=== PATIENT | female | born 1975 | race Caucasian/White ===

== ENCOUNTER 2024-11-22 06:27 | Emergency (ER) | payer OTHER, SELFPAY ==
[2024-11-22 06:35] VITALS: BP 126/80
[2024-11-22 06:55] LABS: % Basophils 0.7 % (0-2); % Eosinophils 2.5 % (0-6); % Immature Granulocytes 0.3 % (0-0.5); % Lymphocytes 28.4 % (20.5-51.1); % Monocytes 8.4 % (1.7-9.3); % Neutrophils 59.7 % (42.2-75.2); Absolute Basophils 0.1 10^3/uL (0-0.2); Absolute Eosinophils 0.2 10^3/uL (0-0.7); Absolute Lymphocytes 2.1 10^3/uL (1.2-3.4); Absolute Monocytes 0.6 10^3/uL (0.1-0.6); Absolute Neutrophils 4.4 10^3/uL (1.4-6.5); Hematocrit 33.2 % (37.0-47.0); Hemoglobin 9.9 g/dL (12.0-16.0); Mean Corp Hgb Conc. 29.8 g/dL (33.0-37.0); Mean Corpuscular Hgb 21.8 pg (27.0-31.0); Mean Corpuscular Volume 73.1 fL (81.0-99.0); Mean Platelet Volume 9.4 fL (7.4-10.4); Nucleated Red Blood Cells % 0 %; Platelet Count 352 10^3/uL (130-400); Red Blood Cell Count 4.54 10^6/uL (4.20-5.40); Red Cell Dist. Width 19.8 % (11.5-14.5); White Blood Cell Count 7.3 10^3/uL (4.8-10.8)
[2024-11-22 07:04] LABS: HCG, Serum Qualitative Screen Negative
[2024-11-22 07:17] LABS: ALT (SGPT) 18 U/L (0-35); AST (SGOT) 23 U/L (14-36); Albumin 4.3 g/dl (3.5-5.0); Alkaline Phosphatase 41 U/L (38-126); Blood Urea Nitrogen 13 mg/dl (7-17); Calcium 9.8 mg/dl (8.4-10.2); Carbon Dioxide 26 mmol/L (22-30); Chloride 109 mmol/L (98-107); Glucose 97 mg/dl (70-99); Potassium 4.5 mmol/L (3.5-5.1); Sodium 140 mmol/L (135-145); Total Bilirubin 0.6 mg/dl (0.2-1.3); Total Protein 6.9 g/dl (6.3-8.2); eGFR > 60.00
[2024-11-22 07:21] LABS: Troponin I < 0.012 ng/ml
--- NOTE | 2024-11-22 08:22 | ED.GENMED ---
History of Present Illness
General
Chief Complaint: Chest Problem
Source: patient
Exam Limitations: none
Time Seen by Provider: 11/22/24 08:20
History of Present Illness
History of Present Illness:
49yoF with no significant past medical history presenting for evaluation of chest pain. Patient reports intermittent chest discomfort for the past 4 days. She describes a pulling sensation in the left side of her chest. Symptoms come on randomly.
She denies any exertional or pleuritic symptoms. She is otherwise asymptomatic and denies any shortness of breath, diaphoresis, dizziness, nausea, calf pain, leg swelling. Patient's mother 2 days ago and she is unsure if her symptoms
are related to stress. Patient exercises regularly and denies ever having any exercise intolerance.
Phy Exam
General Physical Exam
General Presentation: well appearing and no apparent distress
General Skin: warm and dry
General Habitus: normal
General Mental: alert
ENT Exam
ENT Exam: normocephalic
Cardiovascular Exam
Cardiovascular Exam: regular rate/rhythm, no edema and no murmur
Pulmonary Exam
Pulmonary Exam: lungs clear, no respiratory distress, no crackles, no rhonchi, no wheezing and other (+Mild tenderness to L chest wall)
Neurological Exam
Neurological Exam: alert
[place] Coma Scale
Eye Opening: Spontaneous
Verbal Response: Oriented
Motor Response: Obeys Commands
GCS Total Score: 15
Skin Exam
Skin Exam: normal color and warm/dry
Psychiatric Exam
Psychiatric Exam: normal mood/affect
Course
Orders/Labs/Results
Orders:
Orders
11/22/24 06:31
Electrocardiogram (*1) Urgent
Reason for Study: Chest Pain
EKG- Treatment ONCE
11/22/24 06:39
Test Result ONCE
11/22/24 06:44
Complete Blood Count/With Diff Urgent
Comprehensive Metabolic Panel Urgent
HCG, Serum Qualitative Screen Urgent
TSH Urgent
Comment: ADD ON
Troponin I Urgent
11/22/24 08:21
Add On- LAB Urgent
Tests Added?: TSH
11/22/24 08:36
CR Chest - 2 Views Urgent
Comment:
Reason For Exam: CP
Abnormal Lab Results
11/22/24
06:44
Hgb 9.9 L g/dL
(12.0-16.0)
Hct 33.2 L %
(37.0-47.0)
MCV 73.1 L fL
(81.0-99.0)
MCH 21.8 L pg
(27.0-31.0)
MCHC 29.8 L g/dL
(33.0-37.0)
RDW 19.8 H %
(11.5-14.5)
Chloride 109 H mmol/L
(98-107)
TSH 0.29 L uIU/ml
(0.47-4.68)
11/22/24 06:44
11/22/24 06:44
Vital Signs
Initial and Last Documented VS:
Initial Vital Signs
Temp Pulse Resp BP Pulse Ox
98.7 F 84 16 126/80 100
11/22/24 06:35 11/22/24 06:35 11/22/24 06:35 11/22/24 06:35 11/22/24 06:35
Last Documented Vital Signs
Temp Pulse Resp BP Pulse Ox
98.7 F 67 13 141/84 97
11/22/24 06:35 11/22/24 09:07 11/22/24 08:45 11/22/24 08:44 11/22/24 09:50
MDM/Problems Addressed
Differential Diagnosis Includes:
49yoF here with intermittent L sided pulling chest pain x 4 days. Otherwise asymptomatic. Mother recently . VSS. She is well appearing and resting comfortably. There is mild chest wall tenderness on exam. Exam otherwise reassuring.
Differential diagnosis includes but is not limited to: Musculoskeletal, esophagitis, ACS, Takotsubo cardiomyopathy
EKG obtained in triage shows NSR without ischemic changes. Hemoglobin 9.9, unclear baseline. Troponin WNL. CXR is normal. No indication for hospitalization. She was advised to f/u with PCP for outpatient echo/further testing. ED return precautions
reviewed. Patient in agreement with plan and was discharged in stable condition.
*Pulse Oximetry
SaO2: 100
Oxygen Mode of Delivery: Room air
Patient hypoxic: no (100%)
*EKG
Interpreted by ED Provider?: Yes
EKG Intrepretation Date: 11/22/24
Heart Rate: 79
Rate: normal
Rhythm: sinus
[place]: normal axis
QRS Pattern: normal QRS
Ischemia: no ischemia
*Critical Care Note
Total Time (30-74mins, 75-104mins- exclusive of procedures): Not Applicable
ED Attending Note
-
Portions of this chart may have been created with voice recognition software.� Occasional wrong word or��sound alike� substitutions may have occurred due to the inherent limitations of voice recognition software.
Discharge Plan
Departure
Patient Disposition: Home (Routine Discharge)
Date of Disposition: 11/22/24
Time of Disposition: 09:16
Patient with high blood pressure during this ER visit?: No
Discharge Problem:
Nonspecific chest pain
Instructions: Chest Pain PCP Follow Up
Prescriptions:
No Action
prenat.vits,eric,[id number] [ Vitamin] 1 TAB tablet
1 tab PO
Referrals:
Mu Schilling MD [Family Provider, Family Practice]
Activity Restrictions/Additional Instructions:
Please call your [facility] doctor on Sunday to schedule a follow-up appointment for further testing. Return to the ER with any new or worsening symptoms.
Interventions
Interventions:
*Risk Screen - Suicide Last Done: 11/22/24 06:35
*General Assessment Last Done: 11/22/24 06:35
*Neglect/Abuse Screening Last Done: 11/22/24 06:35
*ED- Fall Risk Assessment Last Done: 11/22/24 09:08
*ED COVID-19 Vaccine History Last Done: 11/22/24 09:08
*Nursing Disposition Last Done: 11/22/24 09:50
ED- Cardiac Assessment Last Done: 11/22/24 09:16
ED- Pulmonary Assessment Last Done: 11/22/24 09:50
Discharge Date and Time
Discharge Date/Time: 11/22/24 09:30
Print Language: NORWEGIAN
[2024-11-22 08:42] VITALS: BMI 23.1
[2024-11-22 08:44] VITALS: BP 141/84
[2024-11-22 09:48] LABS: TSH 0.29 uIU/ml (0.47-4.68)
== END 2024-11-22 09:30 | disposition home or self-care (01) ==
LOC: EMR 06:27
PROVIDERS: EMERGENCY PHYSICIAN Emergency Medicine; FAMILY PHYSICIAN Family Medicine
DX: R07.89 Other chest pain (principal); Z63.4 Disappearance and death of family member
CPT/HCPCS: 99283; 71046; 80053; 84443; 84484; 84703; 85025; 93005

== ENCOUNTER 2025-03-21 07:00 | Emergency (ER) | payer OTHER, SELFPAY ==
[2025-03-21 07:02] VITALS: BP 141/82
--- NOTE | 2025-03-21 07:41 | ED.GENMED ---
History of Present Illness
General
Chief Complaint: Urinary Symptoms
Source: patient
Exam Limitations: none
Time Seen by Provider: 03/21/25 07:17
History of Present Illness
History of Present Illness:
49yoF on HRT for menopausal symptoms presenting for evaluation of UTI symptoms. Symptoms have been ongoing since September of this year. She was seen at urgent care last month while she was on vacation in September. She was prescribed an antibiotic for
a UTI but was called several days later and told that her urine culture was normal and to stop antibiotics. She has been seen by her PCP and also saw gynecology last week. Both told her that they believe she has interstitial cystitis. Patient has
an appointment with urology scheduled in 4 days. Her dysuria has been worsening over the past few days and she is experiencing associated frequency and urgency. She has been taking Uricalm OTC without any relief. She denies any fevers, flank
pain, vomiting, abdominal pain, vaginal discharge. She denies any concern for STDs.
Phy Exam
General Physical Exam
General Presentation: well appearing and no apparent distress
General Skin: warm and dry
General Habitus: normal
General Mental: alert
ENT Exam
ENT Exam: normocephalic
Pulmonary Exam
Pulmonary Exam: no respiratory distress
Gastrointestinal Exam
Gastrointestinal Exam: non tender, soft, non distended and no cva tenderness
Neurological Exam
Neurological Exam: alert
[place] Coma Scale
Eye Opening: Spontaneous
Verbal Response: Oriented
Motor Response: Obeys Commands
GCS Total Score: 15
Skin Exam
Skin Exam: normal color and warm/dry
Psychiatric Exam
Psychiatric Exam: normal mood/affect
Course
Orders/Labs/Results
Orders:
Orders
03/21/25 07:32
Urinalysis Reflex To Culture Urgent
Date Specimen was Collected: 03/21/25
Time Specimen was Collected: 07:25
Urine Microscopic Reflex Cult Urgent
Urine Culture Urgent
ANGELIQUE Source: U
Specimen Description:
Date Specimen was Collected: 03/21/25
Time Specimen was Collected: :
Abnormal Lab Results
03/21/25
07:32
Urine Ketones 1+ A
(Negative)
Ur Occult Blood Reflex 4+ A
(Negative)
Urine Nitrite (Reflex) Positive A
(Negative)
Urine Bilirubin 2+ A
(Negative)
Urine Urobilinogen 2+ A
(Neg - 1+)
Leukocyte Esterase Rfl 3+ A
(Negative)
Urine WBC (Reflex) 70-80 A /HPF
(0-5)
Urine Bacteria (Reflex) Few A
(Negative)
Urine Albumin (Reflex) 2+ A
(Neg - Trace)
Vital Signs
Initial and Last Documented VS:
Initial Vital Signs
Temp Pulse Resp BP Pulse Ox
97.5 F 82 18 141/82 100
03/21/25 07:02 03/21/25 07:02 03/21/25 07:02 03/21/25 07:02 03/21/25 07:02
Last Documented Vital Signs
Temp Pulse Resp BP Pulse Ox
97.5 F 82 18 141/82 100
03/21/25 07:02 03/21/25 07:02 03/21/25 07:02 03/21/25 07:02 03/21/25 07:43
MDM/Problems Addressed
Differential Diagnosis Includes:
49yoF here with UTI symptoms. Has been seen by PCP and gynecology and they told her she likely has interstitial cystitis. No f/c. No flank pain or vomiting. VSS. She is well appearing in no distress. No abdominal or CVA tenderness on exam.
Differential diagnosis includes but is not limited to: UTI, interstitial cystitis, less likely vaginitis as she denies vaginal discharge and had a normal gynecologic exam within the past week
Urine dip positive for nitrates with 3+ leukocytes. Urine bilirubin also detected although urine dip analysis is likely skewed due to patient taking phenazopyridine. Microscopic analysis shows 70-80 WBCs which is suggestive of infection. She was
started on a course of Keflex. She has an appointment with urology in 4 days so will have close follow-up. ED return precautions reviewed and she was discharged in stable condition.
*Pulse Oximetry
SaO2: 100
Oxygen Mode of Delivery: Room air
Patient hypoxic: no
*Critical Care Note
Total Time (30-74mins, 75-104mins- exclusive of procedures): Not Applicable
ED Attending Note
-
Portions of this chart may have been created with voice recognition software.� Occasional wrong word or��sound alike� substitutions may have occurred due to the inherent limitations of voice recognition software.
Discharge Plan
Departure
Patient Disposition: Home (Routine Discharge)
Date of Disposition: 03/21/25
Time of Disposition: 08:27
Patient with high blood pressure during this ER visit?: Yes
Discharge Problem:
Urinary tract infection
Instructions: Urinary Tract Infection, Adult (DC)
Prescriptions:
New
cephalexin 500 mg capsule
500 mg PO Q6H 7 Days Qty: 28 0RF
No Action
prenat.vits,eric,[id number] [ Vitamin] 1 TAB tablet
1 tab PO
Referrals:
Alan Dumont DO [Family Provider, Family Practice]
Activity Restrictions/Additional Instructions:
Take antibiotics as prescribed. Drink plenty of fluids.
Please follow-up with urology next week as previously schedule. Return to the ER with any worsening symptoms including fevers, vomiting, or flank pain.
Interventions
Interventions:
*Risk Screen - Suicide Last Done: 03/21/25 07:02
*General Assessment Last Done: 03/21/25 07:02
*Neglect/Abuse Screening Last Done: 03/21/25 07:02
*ED- Fall Risk Assessment Last Done: 03/21/25 08:02
ED-Female Genitourinary Assessment Last Done: 03/21/25 08:02
Discharge Date and Time
Print Language: MALAY
[2025-03-21 07:48] LABS: Urine Character Clear (Clear)
[2025-03-21 08:20] LABS: Urine Red Blood Cell 0-2 /HPF (0-2); Urine White Cell 70-80 /HPF (0-5)
[2025-03-21 08:30] VITALS: BP 116/74
== END 2025-03-21 08:30 | disposition home or self-care (01) ==
LOC: EMR 07:00
PROVIDERS: Physician Assistant; EMERGENCY PHYSICIAN Emergency Medicine; FAMILY PHYSICIAN Family Medicine
DX: N39.0 Urinary tract infection, site not specified (principal); R03.0 Elevated blood-pressure reading, without diagnosis of hypertension; N95.1 Menopausal and female climacteric states; Z79.890 Hormone replacement therapy
CPT/HCPCS: 99283; 81003; 81015; 87086